=== PATIENT | male | born 1950 | race Caucasian/White ===

== ENCOUNTER 2017-11-02 19:44 | Emergency (ER) | payer BC, MEDICARE, OTHER ==
[2017-11-02 20:03] VITALS: BP 144/93
--- NOTE | 2017-11-02 20:43 | EDM.PDOC ---
ED HPI GENERAL MEDICAL PROBLEM - General Chief Complaint: Upper Extremity Injury/Pain Stated Complaint: POSSIBLE BROKEN BONE IN WRIST Time Seen by Provider: 11/02/17 20:29 Source of Information: Reports: Patient History Limitations: Reports: No Limitations - History of Present Illness INITIAL COMMENTS - FREE TEXT/NARRATIVE: Patient is a 67 y/o male who presents to the E.D. complaining of right wrist pain. 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 Wednesday evening noticed some soreness and swelling to the outer aspect of the wrist with increased warmth and redness localized. He does have a history of gout in the past limited to his big toes bilaterally. His limited range of motion secondary to pain. He has a history of diabetes. Denies any fever, redness streaking up his arm,tingling, or any additional complaints. Other Treatments RESEARCH ASST: motrin today Right Wrist Pain Score (Numeric/FACES): 7 - Related Data Allergies Allergy/AdvReac Type Severity Reaction Status Date / Time No Known Allergies Allergy Verified 11/10/15 21:37 Home Meds: Home Meds Cholecalciferol (Vitamin D3) [Vitamin D] 2,000 units PO DAILY 11/10/15 [History] L.acidoph,Paracasei, B.lactis [Probiotic] 1 cap PO DAILY 11/10/15 [History] [place]-3/DHA/Epa/Fish Oil [Fish Oil] 1,000 mg PO DAILY 11/10/15 [History] Cephalexin [Keflex] 500 mg PO TID #30 capsule 11/02/17 [Rx] Past Medical History Genitourinary History: Reports: Other (See Below) Other Genitourinary History: one kidney removed Musculoskeletal History: Reports: Gout Psychiatric History: Reports: None - Past Surgical History Musculoskeletal Surgical History: Reports: Shoulder Surgery Other Musculoskeletal Surgeries/Procedures:: bilateral shoulder Social & Family History - Tobacco Use Smoking Status *Q: Current Every Day Smoker Years of Tobacco use: 50 Packs/Tins Daily: 1 - Caffeine Use Caffeine Use: Reports: None - Recreational Drug Use Recreational Drug Use: No Review of Systems - Review of Systems Review Of Systems: ROS reveals no pertinent complaints other than HPI. ED EXAM, GENERAL - Physical Exam Exam: See Below Exam Limited By: No Limitations General Appearance: Alert, WD/WN, No Apparent Distress Ears: Hearing Grossly Normal Nose: Normal Inspection Throat/Mouth: Normal Voice, No Airway Compromise Neck: Normal Inspection, Supple Respiratory/Chest: No Respiratory Distress, Lungs Clear, Normal Breath Sounds, No Accessory Muscle Use Cardiovascular: Normal Peripheral Pulses, Regular Rate, Rhythm Peripheral Pulses: 4+: Radial (R) Extremities: Other (Mild swelling and redness noted along the distal aspect the ulnar. Patient has tenderness noted with palpation. Able to flex and extend with minimal discomfort. With any supination or pronation of the wrist pain is worsen. No sensorimotor deficits distally. No pain noted to the elbow, upper arm , shoulder.) Neurological: Alert, Oriented, CN II-XII Intact, Normal Cognition, No Motor/ Sensory Deficits Psychiatric: Normal Affect, Normal Mood Skin Exam: Warm, Dry Course - Vital Signs Last Recorded V/S: Last Vital Signs Temp 97.8 F 11/02/17 20:02 Pulse 63 11/02/17 20:02 Resp 20 11/02/17 20:02 BP 144/93 H 11/02/17 20:02 Pulse Ox 100 11/02/17 20:02 - Orders/Labs/Meds Orders: Active Orders 24 hr Category Date Time Status Wrist Comp Min 3V Rt [CR] Stat Exams 11/02/17 20:35 Taken Labs: Laboratory Tests 11/02/17 11/02/17 11/02/17 Range/Units 20:50 20:50 20:50 WBC 8.34 (4.23-9.07) K/mm3 RBC 4.46 L (4.63-6.08) M/mm3 Hgb 13.5 L (13.7-17.5) gm/L Hct 40.2 (40.1-51.0) % MCV 90.1 (79.0-92.2) fl MCH 30.3 (25.7-32.2) pg MCHC 33.6 (32.2-35.5) g/dl RDW Std Deviation 40.9 (35.1-43.9) fL Plt Count 236 (163-337) K/mm3 MPV 10.3 (9.4-12.3) fl Neutrophils % (Manual) 66 H (40-60) % Band Neutrophils % 0 (0-10) % Lymphocytes % (Manual) 26 (20-40) % Atypical Lymphs % 0 % Monocytes % (Manual) 5 (2-10) % Eosinophils % (Manual) 3 (0.8-7.0) % Basophils % (Manual) 0 L (0.2-1.2) Platelet Estimate Adequate Plt Morphology Comment Normal RBC Morph Comment Normal ESR 11 (0-15) mm/hr Sodium 138 (136-145) mEq/L Potassium 3.8 (3.5-5.1) mEq/L Chloride 103 (98-107) mEq/L Carbon Dioxide 23 (21-32) mEq/L Anion Gap 15.8 H (5-15) BUN 33 H (7-18) mg/dL Creatinine 1.5 H (0.7-1.3) mg/dL Est Cr Clr Drug Dosing 44.31 mL/min Estimated GFR (MDRD) 47 (>60) mL/min BUN/Creatinine Ratio 22.0 H (14-18) Glucose 109 (80-115) mg/dL Uric Acid 7.8 H (3.5-7.2) mg/dL Calcium 9.0 (8.5-10.1) mg/dL Total Bilirubin 0.5 (0.2-1.0) mg/dL AST 20 (15-37) U/L ALT 33 (16-63) U/L Alkaline Phosphatase 63 (46-116) U/L C-Reactive Protein < 0.2 (<1.0) mg/dL Total Protein 6.7 (6.4-8.2) g/dl Albumin 3.8 (3.4-5.0) g/dl Globulin 2.9 gm/dL Albumin/Globulin Ratio 1.3 (1-2) Meds: Medications Discontinued Medications Generic Name Dose Route Start Last Admin Trade Name Freq PRN Reason Stop Dose Admin Cefazolin Sodium 1 gm 11/02/17 22:28 Ancef IM 11/02/17 22:29 ONETIME ONE Cephalexin 500 mg 11/02/17 22:29 Keflex PO 11/02/17 22:30 ONETIME ONE - Re-Assessments/Exams Free Text/Narrative Re-Assessment/Exam: Patient has pain noted to the right wrist along the distal aspect of the ulnar with mild redness noted. Patient has history of gout to his great toes bilaterally. 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 Pain starte today. I have ordered x-ray of the right wrist, cbc, cmp, crp, esr, and uric acid. Labs reviewed: CBC essentially normal. Chemistry revealed sodium 138, potassium 3.8, hCG of 15.8, BUN 33, creatinine 1.7, CRP less than 0.2, ESR 11. 11/02/17 22:30 I did speak with Dr. Olivo and he suggested starting the patient on Keflex and also indomethacin. I will not start indomethacin patient only has one kidney and creatinine is 1.5. Suggested splinting the affected extremity and follow-up with PCP or Dr. Reza in one week. Departure - Departure Time of Disposition: 22:36 Disposition: Home, Self-Care 01 Condition: Good Clinical Impression: Cellulitis Qualifiers: Site of cellulitis: extremity Site of cellulitis of extremity: upper extremity Laterality: right Qualified Code(s): L03.113 - Cellulitis of right upper limb Gout attack Qualifiers: Gout site: wrist Gout etiology: unspecified cause Laterality: right Qualified Code(s): M10.9 - Gout, unspecified Sprain of wrist, right Qualifiers: Encounter type: initial encounter Qualified Code(s): S63.501A - Unspecified sprain of right wrist, initial encounter - Discharge Information Prescriptions: Cephalexin [Keflex] 500 mg PO TID #30 capsule Instructions: Wrist Sprain, Adult, Gout, [id number], Cellulitis, Adult, Easy- to-Read Referrals: Francisco Evans MD [Primary Care Provider] - Morales Reza MD [Physician] - Forms: ED Department Discharge Additional Instructions: Take the Keflex as prescribed. Wear the wrist splint until evaluated by PCP or orthopedic surgeon in one week. Apply warm compresses to affected area 3 times daily, 30 minutes in duration. Take tylenol 650mg every 6 hrs for pain. Take aleve 1 tab twice a day. Return to the E.D. if you develop any new or worsening symptoms. - My Orders Last 24 Hours: My Active Orders 11/02/17 20:35 Wrist Comp Min 3V Rt [CR] Stat - Assessment/Plan Last 24 Hours: My Active Orders 11/02/17 20:35 Wrist Comp Min 3V Rt [CR] Stat
[2017-11-02] MEDS ORDERED: ceFAZolin 1 GM Vial IM ONE (22:28)
[2017-11-02] MEDS ORDERED: Cephalexin 500 MG Cap PO ONE (22:29)
--- NOTE | 2017-11-03 10:05 | CR ---
Right wrist: Four views of the right wrist were obtained. Comparison: No prior wrist exam. Joint spaces are preserved. No acute fracture, dislocation or other bony abnormality is seen. Impression: 1. No bony abnormality is identified on right wrist exam. Diagnostic code #1
== END 2017-11-02 23:10 | disposition home or self-care (01) ==
LOC: JD.ED 19:44
DX: S63.501A Unspecified sprain of right wrist, initial encounter (principal); L03.113 Cellulitis of right upper limb; M10.9 Gout, unspecified; F17.210 Nicotine dependence, cigarettes, uncomplicated; Z79.899 Other long term (current) drug therapy; W22.8XXA Striking against or struck by other objects, initial encounter
CPT/HCPCS: 36415; 73110; 80053; 84550; 85007; 85027; 85652; 86140; 96372; 99284; A9270; J0690

== ENCOUNTER 2025-03-08 06:00 | Day surgery (SDC) | payer MEDICARE, OTHER ==
[2025-03-08] MEDS: Lactated Ringers 1,000 ML IV SCH (06:05)
[2025-03-08] MEDS ORDERED: fentaNYL 100 MCG/2 ML SDV ONE (06:23)
[2025-03-08] MEDS ORDERED: Ropivacaine 0.5% 5 MG/ML 30 ML SDV ONE (06:23)
[2025-03-08] MEDS ORDERED: Midazolam 1 MG/ML 2 ML SDV ONE (06:23)
[2025-03-08] MEDS ORDERED: Sodium Chloride 0.9% 10 ML Syringe FLUSH PRN (06:39)
[2025-03-08] MEDS ORDERED: Sodium Chloride 0.9% 10 ML Syringe FLUSH SCH (09:00)
== END 2025-03-08 07:50 | disposition home or self-care (01) ==
LOC: JD.SDS 06:00
PROVIDERS: ATTEND Orthopaedic Surgery
DX: M65.351 Trigger finger, right little finger (principal); I10 Essential (primary) hypertension; E78.5 Hyperlipidemia, unspecified; F17.200 Nicotine dependence, unspecified, uncomplicated; Z79.899 Other long term (current) drug therapy
CPT/HCPCS: 26055; 64450; J0690; J2250; J2795; J3010; J7120; 01810; 99100; J0665; J2003